=== PATIENT | female | born 1950 | race Caucasian/White ===

== ENCOUNTER 2020-10-15 10:43 | Observation (INO) ==
--- NOTE | 2020-10-15 11:23 | Emergency Department Note ---
Impression & Plan Chest pain ED Provider Note NAME: MYAH ERIC AGE: 70 SEX: F : 1950 ARRIVES VIA: Walk-In INFORMANT: Patient, ED PROVIDER(S): Kaden Alexis DO CHIEF COMPLAINT: Chest pain HPI: The patient is a 70-year-old female who presented to the emergency department for an evaluation of chest pain. The patient describes chest pain which began yesterday while she was exerting herself. She states she was walking from the parking lot to a store when she got to the store she realized that she was very flushed and diaphoretic. She also states that she was dizzy and felt a pressure over her anterior chest. She states that the symptoms improved with rest. She denies having any shortness of breath or leg swelling. The patient has had some nausea but no vomiting. The patient states her symptoms are mild to moderate at this time but they are ongoing. She continues to notice dizziness but denies having any vertigo symptoms or unilateral weakness. The patient denies having any headache. The patient has never had a cardiac history in the past. ROS: See above HPI for pertinent positives & negatives. A total of 10 systems reviewed and were otherwise negative. PAST MEDICAL HISTORY: See Below PAST SURGICAL HISTORY: See Below FAMILY HISTORY: See Below SOCIAL HISTORY: See Below HOME MEDICATIONS: See Below ALLERGIES: See Below VITALS: See Below PHYSICAL EXAMINATION: GENERAL: Patient is awake alert in no acute distress patient is resting comfortably and showing no signs of anxiety EYES: The conjunctivae are clear. The pupils are round and reactive. EARS, NOSE, MOUTH AND THROAT: The nose is without any evidence of any deformity. NECK: The neck is nontender and supple. RESPIRATORY: Normal respiratory effort is noted there is no evidence of wheezing rhonchi or rales CARDIOVASCULAR: Regular rate and rhythm noted there no murmurs rubs or gallops normal S1 normal S2. GASTROINTESTINAL: The abdomen is soft. Abdomen is nontender. MUSCULOSKELETAL/EXTREMITIES: There is no evidence of gross deformity full range of motion is noted in the hips and shoulders. SKIN: There is no obvious evidence of any rash. There are no petechiae, pallor or cyanosis noted. NEUROLOGIC: Patient is awake alert and oriented x3. MEDICAL DECISION MAKING: The patient is a 70-year-old female who presented to the emergency department for an evaluation of chest pain. The patient was experiencing chest pain after walking through a parking lot. She did not describe it as specific pain but more of a pressure. She also had a flushed feeling and may have been diap horetic at the time. This episode occurred yesterday. She was very concerned about a cardiac cause for her chest pain. The patient had EKG and troponin measurements in the emergency department. She had serial troponin measurements as well. I discussed the patient's laboratory and radiographic studies with her. I also discussed the limitations of the emergency department work-up for chest pain with her. Ultimately she was found to have a heart score of 4-5. I do feel this places her at high risk. For this reason I discussed her case with the on-call [facility] hospitalist group. They have agreed to evaluate the patient in the emergency department for further management and disposition. Triage Nursing notes reviewed. Prior medical records reviewed Vital Signs: reviewed and remarkable for no significant abnormalities Differential diagnosis: Cardiac ischemia, aortic dissection, pulmonary embolism, pneumothorax, pneumonia, pericarditis, myocarditis, esophageal rupture, GERD, cholecystitis, pancreatitis, musculoskeletal, as well as other pathologies. ER treatment provided: See below Diagnostics interpreted by me: ECG: EKG was obtained in the emergency department. My interpretation is normal sinus rhythm at 83 bpm. There was no ectopy. There is no acute ST segment abnormalities noted. No previous tracing was available. A second EKG was obtained in the emergency department. My interpretation is normal sinus rhythm at 73 bpm. There is no ectopy. There is no acute ST segment abnormalities noted. This was compared to the earlier tracing and no significant changes were noted. Cardiac Monitoring: An order was placed for continuous cardiac monitoring. The monitor shows a rate of 88 bpm with sinus rhythm. Laboratory studies: As stated above and show below. Imaging studies: See below Consultation(s): I discussed this case with Eh Ibrahim who is on-call for the [facility] list group. Past Med/Surg History Medical History (Updated 10/15/20 @ 17:10 by Kaden Alexis DO) Diabetes mellitus type 2, controlled Dyslipidemia Hypertension Obesity (BMI 30.0-34.9) Surgical History (Updated 10/15/20 @ 16:29 by Eh Ibrahim PA-C) No history of previous surgery Family History (Updated 10/15/20 @ 16:31 by Eh Ibrahim PA-C) Father Heart disease Sudden at age 76 Mother Heart disease Fatal SD in her 60s Daughter Heart disease PCI with stenting Brother Heart disease of an acute SD Sister Colorectal cancer Diagnosed at age 60 Stroke Social History (Updated 10/15/20 @ 16:32 by Eh Ibrahim PA-C) Smoking Status: Never smoker Hx Alcohol Use: Yes (1 drink nightly with [employer] and diet 7-Up) marital status: Current Living Situation: Spouse current occupational status: retired How many Children do You have: 2 Feels Safe at Home: Yes Allergies Allergies Allergy/AdvReac Type Severity Reaction Status Date / Time No Known Allergies Allergy Unverified 10/15/20 12:34 Home Meds Home Medications Medication Instructions Recorded Confirmed amlodipine-benazepril 1 cap PO QAM 10/15/20 10/15/20 aspirin [Aspir-81] 81 mg PO QAM 10/15/20 10/15/20 atorvastatin 20 mg PO QAM 10/15/20 10/15/20 metformin 500 mg PO BID 10/15/20 10/15/20 Results & Data (ED) Vital Signs Vital Signs - 24 hr 10/15/20 10:47 10/15/20 11:08 10/15/20 11:10 Temperature 36.8 C Temperature Source Oral Pulse Rate 126 H Pulse Rate [Apical] 84 Pulse Rate from SpO2 Sensor Pulse Rhythm Regular Pulse Strength Normal Respiratory Rate 18 14 Respiratory Effort / Characteristics Non-Labored Spontaneous Non-Labored Spontaneous Respiratory Depth Normal Normal Respiratory Pattern Regular Regular Blood Pressure 160/111 H Blood Pressure [Left Arm] 145/85 H Blood Pressure Mean 127 Blood Pressure Mean [Left Arm] 105 Blood Pressure Position Sitting Pulse Oximetry 97 95 Oxygen Delivery Method Room Air Room Air Room Air Sepsis Recent Fever Within 48 Hours No Sepsis New/Unexplained Change in Mental Status N/A Sepsis Action Taken by Nursing No Action Required 10/15/20 11:30 10/15/20 12:00 10/15/20 12:30 Temperature Temperature Source Pulse Rate 91 H 93 H 94 H Pulse Rate [Apical] Pulse Rate from SpO2 Sensor 91 H 88 92 H Pulse Rhythm Pulse Strength Respiratory Rate 13 18 16 Respiratory Effort / Characteristics Respiratory Depth Respiratory Pattern Blood Pressure 129/83 130/91 138/83 Blood Pressure [Left Arm] Blood Pressure Mean 98 104 101 Blood Pressure Mean [Left Arm] Blood Pressure Position Pulse Oximetry 96 98 97 Oxygen Delivery Method Room Air Room Air Room Air Sepsis Recent Fever Within 48 Hours Sepsis New/Unexplained Change in Mental Status Sepsis Action Taken by Nursing 10/15/20 13:00 10/15/20 13:32 10/15/20 14:00 Temperature Temperature Source Pulse Rate 92 H 79 90 Pulse Rate [Apical] Pulse Rate from SpO2 Sensor 92 H 79 88 Pulse Rhythm Pulse Strength Respiratory Rate 15 16 24 Respiratory Effort / Characteristics Respiratory Depth Respiratory Pattern Blood Pressure 128/86 121/86 133/87 Blood Pressure [Left Arm] Blood Pressure Mean 100 97 102 Blood Pressure Mean [Left Arm] Blood Pressure Position Pulse Oximetry 96 99 97 Oxygen Delivery Method Room Air Room Air Room Air Sepsis Recent Fever Within 48 Hours Sepsis New/Unexplained Change in Mental Status Sepsis Action Taken by Nursing 10/15/20 14:30 10/15/20 15:00 10/15/20 15:30 Temperature Temperature Source Pulse Rate 87 89 103 H Pulse Rate [Apical] Pulse Rate from SpO2 Sensor 84 86 Pulse Rhythm Pulse Strength Respiratory Rate 19 18 20 Respiratory Effort / Characteristics Respiratory Depth Respiratory Pattern Blood Pressure 128/82 152/95 H 129/86 Blood Pressure [Left Arm] Blood Pressure Mean 97 114 100 Blood Pressure Mean [Left Arm] Blood Pressure Position Pulse Oximetry 97 96 Oxygen Delivery Method Room Air Room Air Room Air Sepsis Recent Fever Within 48 Hours Sepsis New/Unexplained Change in Mental Status Sepsis Action Taken by Nursing 10/15/20 16:00 10/15/20 16:30 10/15/20 17:00 Temperature Temperature Source Pulse Rate 86 92 H 88 Pulse Rate [Apical] Pulse Rate from SpO2 Sensor 86 89 87 Pulse Rhythm Pulse Strength Respiratory Rate 14 17 19 Respiratory Effort / Characteristics Respiratory Depth Respiratory Pattern Blood Pressure 149/78 H 158/87 H 129/87 Blood Pressure [Left Arm] Blood Pressure Mean 101 110 101 Blood Pressure Mean [Left Arm] Blood Pressure Position Pulse Oximetry 95 96 97 Oxygen Delivery Method Room Air Room Air Room Air Sepsis Recent Fever Within 48 Hours Sepsis New/Unexplained Change in Mental Status Sepsis Action Taken by Care Home Medications Current Medication List: was personally reviewed by me Laboratory Data Attestation: I reviewed the patient's lab results. Result diagrams: 10/15/20 11:08 10/15/20 11:08 Lab Results 02/21/21 02/21/21 02/21/21 Range/Units 11:08 11:08 11:08 WBC 5.85 (4.8-10.8) K/uL RBC 4.53 (4.2-5.4) M/uL Hgb 14.8 (12.0-16.0) g/dL Hct 43.6 (37-47) % MCV 96.2 (80-100) fL MCH 32.7 (25-34) pg MCHC 33.9 (32-36) g/dL RDW Std Deviation 43.3 (36.4-46.3) fL RDW Coeff of Ratna 12.4 (11.5-14.5) % Plt Count 212 (130-400) K/uL MPV 12.0 H (7.4-10.4) fL Immature Gran % (Auto) 0.2 % Neut % (Auto) 51.4 % Lymph % (Auto) 29.9 % [place] % (Auto) 10.6 % Eos % (Auto) 7.4 % Baso % (Auto) 0.5 % Neut # (Auto) 3.01 (1.4-6.5) K/uL Lymph # (Auto) 1.75 (1.2-3.4) K/uL [place] # (Auto) 0.62 H (0.11-0.59) K/uL Eos # (Auto) 0.43 (0-0.5) K/uL Baso # (Auto) 0.03 (0-0.2) K/uL Immature Gran # (Auto) 0.01 (0.00-0.02) K/uL PT 9.9 (9.0-12.0) Seconds INR 1.0 (0.9-1.1) APTT 24.2 (21.0-31.0) Seconds PTT Ratio 0.9 Sodium 141 (136-145) mmol/L Potassium 4.2 (3.5-5.1) mmol/L Chloride 107 (98-107) mmol/L Carbon Dioxide 25 (21-32) mmol/L Anion Gap 9.0 (3-11) BUN 11 (7-18) mg/dl Creatinine 0.87 (0.6-1.2) mg/dl Est Cr Clr Drug Dosing 57.3 ml/min Est GFR ( Amer) 77.1 Est GFR (Non-Af Amer) 66.6 BUN/Creatinine Ratio 13.1 (10-20) Glucose 92 (70-99) mg/dl Calcium 9.1 (8.5-10.1) mg/dl Total Bilirubin 0.5 (0.2-1) mg/dl AST 17 (15-37) U/L ALT 32 (12-78) U/L Alkaline Phosphatase 72 (45-117) U/L Troponin I < 0.015 (0-0.045) ng/ml Total Protein 7.8 (6.4-8.2) gm/dl Albumin 4.2 (3.4-5.0) gm/dl Globulin 3.6 (2.5-4.0) gm/dl Albumin/Globulin Ratio 1.2 (0.9-2) Lipase 206 (73-393) U/L Specimen Hemolysis COVID-19 Eval Order SARS-CoV-2 (PCR) Influenza Type A (PCR) Influenza Type B (PCR) RSV (RT-PCR) SARS-CoV-2, RNA, NAAT (NEGATIVE) 10/15/20 10/15/20 10/15/20 Range/Units 14:19 16:02 16:02 WBC (4.8-10.8) K/uL RBC (4.2-5.4) M/uL Hgb (12.0-16.0) g/dL Hct (37-47) % MCV (80-100) fL MCH (25-34) pg MCHC (32-36) g/dL RDW Std Deviation (36.4-46.3) fL RDW Coeff of Ratna (11.5-14.5) % Plt Count (130-400) K/uL MPV (7.4-10.4) fL Immature Gran % (Auto) % Neut % (Auto) % Lymph % (Auto) % [place] % (Auto) % Eos % (Auto) % Baso % (Auto) % Neut # (Auto) (1.4-6.5) K/uL Lymph # (Auto) (1.2-3.4) K/uL [place] # (Auto) (0.11-0.59) K/uL Eos # (Auto) (0-0.5) K/uL Baso # (Auto) (0-0.2) K/uL Immature Gran # (Auto) (0.00-0.02) K/uL PT (9.0-12.0) Seconds INR (0.9-1.1) APTT (21.0-31.0) Seconds PTT Ratio Sodium (136-145) mmol/L Potassium (3.5-5.1) mmol/L Chloride (98-107) mmol/L Carbon Dioxide (21-32) mmol/L Anion Gap (3-11) BUN (7-18) mg/dl Creatinine (0.6-1.2) mg/dl Est Cr Clr Drug Dosing ml/min Est GFR ( Amer) Est GFR (Non-Af Amer) BUN/Creatinine Ratio (10-20) Glucose (70-99) mg/dl Calcium (8.5-10.1) mg/dl Total Bilirubin (0.2-1) mg/dl AST (15-37) U/L ALT (12-78) U/L Alkaline Phosphatase (45-117) U/L Troponin I < 0.015 (0-0.045) ng/ml Total Protein (6.4-8.2) gm/dl Albumin (3.4-5.0) gm/dl Globulin (2.5-4.0) gm/dl Albumin/Globulin Ratio (0.9-2) Lipase (73-393) U/L Specimen Hemolysis COVID-19 Eval Order Covid19 [facility] SARS-CoV-2 (PCR) Cancelled Influenza Type A (PCR) Cancelled Influenza Type B (PCR) Cancelled RSV (RT-PCR) Cancelled SARS-CoV-2, RNA, NAAT (NEGATIVE) 10/15/20 Range/Units 16:02 WBC (4.8-10.8) K/uL RBC (4.2-5.4) M/uL Hgb (12.0-16.0) g/dL Hct (37-47) % MCV (80-100) fL MCH (25-34) pg MCHC (32-36) g/dL RDW Std Deviation (36.4-46.3) fL RDW Coeff of Ratna (11.5-14.5) % Plt Count (130-400) K/uL MPV (7.4-10.4) fL Immature Gran % (Auto) % Neut % (Auto) % Lymph % (Auto) % [place] % (Auto) % Eos % (Auto) % Baso % (Auto) % Neut # (Auto) (1.4-6.5) K/uL Lymph # (Auto) (1.2-3.4) K/uL [place] # (Auto) (0.11-0.59) K/uL Eos # (Auto) (0-0.5) K/uL Baso # (Auto) (0-0.2) K/uL Immature Gran # (Auto) (0.00-0.02) K/uL PT (9.0-12.0) Seconds INR (0.9-1.1) APTT (21.0-31.0) Seconds PTT Ratio Sodium (136-145) mmol/L Potassium (3.5-5.1) mmol/L Chloride (98-107) mmol/L Carbon Dioxide (21-32) mmol/L Anion Gap (3-11) BUN (7-18) mg/dl Creatinine (0.6-1.2) mg/dl Est Cr Clr Drug Dosing ml/min Est GFR ( Amer) Est GFR (Non-Af Amer) BUN/Creatinine Ratio (10-20) Glucose (70-99) mg/dl Calcium (8.5-10.1) mg/dl Total Bilirubin (0.2-1) mg/dl AST (15-37) U/L ALT (12-78) U/L Alkaline Phosphatase (45-117) U/L Troponin I (0-0.045) ng/ml Total Protein (6.4-8.2) gm/dl Albumin (3.4-5.0) gm/dl Globulin (2.5-4.0) gm/dl Albumin/Globulin Ratio (0.9-2) Lipase (73-393) U/L Specimen Hemolysis COVID-19 Eval Order SARS-CoV-2 (PCR) Influenza Type A (PCR) Influenza Type B (PCR) RSV (RT-PCR) SARS-CoV-2, RNA, NAAT NEGATIVE (NEGATIVE) Administered Medications Discontinued Medications Aspirin (Aspirin Chew 324 Mg) 324 mg PO NOW STA Stop: 10/15/20 11:29 Last Admin: 10/15/20 11:40 Dose: 324 mg Documented by: [id number] Imaging Data Radiologist's Impression: Patient: MYAH ERIC Admit Date: 10/15/20 MR#: [id number] Address[address]: [address] Acct ID:[id number] Address2: Date: 1950 [facility] Zip: [id number] Age: 70 Location: ED Sex: F Room/Bed: Att Phy: Diagnosis: CHEST PAIN,NECK PAIN,LEFT ARM PAIN Maida Phy: Apurva Holt DO Service Date: 10/15/20 Fam Phy: Interpreting Phy: Jhonatan Garcia Admit Phy: Ordering Phy: Kaden Alexis DO cc: ~ XR chest 1V portable HISTORY: 70 years-old Female Chest Pain acute atypical chest pain COMPARISON: None TECHNIQUE: Portable AP view of the chest FINDINGS: Cardiomediastinal and hilar silhouettes are within normal limits. No pneumothorax, pleural effusion, airspace consolidation or overt pulmonary edema. Subcentimeter nodular opacity projects over the left lung base, possibly reflective of a nipple shadow. Bones of the chest appear grossly intact. IMPRESSION: No acute process. ACT 112: Negative or not required by law. The above report was generated using voice recognition software. It may contain grammatical, syntax or spelling errors. Electronically signed by: Casey Garcia M.D. 10/15/2020 12:21 PM Dictated: 10/15/20 1220 Transcribed: 10/15/20 1220 Discharge Plan Visit Data Chief Complaint: Chest Pain Stated Complaint: CHEST PAIN,NECK PAIN,LEFT ARM PAIN ED Provider: Kaden Alexis Discharge Problem: Chest pain Patient Disposition: Being Evaluated by Hospitalist Condition: Good Forms Stand Alone Forms: [facility] Prescriptions Prescriptions: No Action metformin 500 mg tablet 500 mg PO BID RF: 0 atorvastatin 20 mg tablet 20 mg PO QAM RF: 0 aspirin [Aspir-81] 81 mg Tablet,Delayed Release (Dr/Ec) 81 mg PO QAM RF: 0 amlodipine-benazepril 5-10 mg capsule 1 cap PO QAM RF: 0 Referrals Referrals: Apurva Holt DO [Primary Care Provider] - Discharge Problem: Chest pain Qualifiers: Chest pain type: unspecified Qualified Code(s): R07.9 - Chest pain, unspecified
[2020-10-15] MEDS ORDERED: ASPIRIN CHEW 324 MG PO STA (11:28)
[2020-10-15 11:46] LABS: Basophils # (auto) 0.03 K/uL (0-0.2); Basophils % (auto) 0.5 %; Eosinophils # (auto) 0.43 K/uL (0-0.5); Eosinophils % (auto) 7.4 %; Hematocrit (blood only) 43.6 % (37-47); Hemoglobin 14.8 g/dL (12.0-16.0); Immature Granulocytes # (auto) 0.01 K/uL (0.00-0.02); Immature Granulocytes % (auto) 0.2 %; Lymphocytes # (auto) 1.75 K/uL (1.2-3.4); Lymphocytes % (auto) 29.9 %; Mean Corpuscular Hemoglobin 32.7 pg (25-34); Mean Corpuscular Hgb Conc 33.9 g/dL (32-36); Mean Corpuscular Volume 96.2 fL (80-100); Monocytes # (auto) 0.62 K/uL (0.11-0.59); Monocytes % (auto) 10.6 %; Neutrophils # (auto) 3.01 K/uL (1.4-6.5); Neutrophils % (auto) 51.4 %; Platelet Count 212 K/uL (130-400); RDW Coefficient of Variation 12.4 % (11.5-14.5); RDW Standard Deviation 43.3 fL (36.4-46.3); Red Blood Count 4.53 M/uL (4.2-5.4); White Blood Count 5.85 K/uL (4.8-10.8)
[2020-10-15 12:02] LABS: Partial Thromboplastin Ratio 0.9; Partial Thromboplastin Time 24.2 Seconds (21.0-31.0); Prothrombin Time 9.9 Seconds (9.0-12.0)
[2020-10-15 12:17] LABS: Alanine Aminotransferase 32 U/L (12-78); Albumin Level 4.2 gm/dl (3.4-5.0); Aspartate Aminotransferase 17 U/L (15-37); BUN Creatinine Ratio 13.1 (10-20); Blood Urea Nitrogen 11 mg/dl (7-18); Calcium 9.1 mg/dl (8.5-10.1); Carbon Dioxide 25 mmol/L (21-32); Chloride 107 mmol/L (98-107); Creatinine Clr Calc Pharmacy 57.3 ml/min; Est GFR (African American) 77.1; Est GFR (Non-African American) 66.6; Glucose 92 mg/dl (70-99); Lipase 206 U/L (73-393); Potassium 4.2 mmol/L (3.5-5.1); Sodium 141 mmol/L (136-145)
[2020-10-15 12:21] LABS: Albumin Globulin Ratio 1.2 (0.9-2); Alkaline Phosphatase 72 U/L (45-117); Bilirubin,Total 0.5 mg/dl (0.2-1); Globulin 3.6 gm/dl (2.5-4.0); Total Protein 7.8 gm/dl (6.4-8.2); Troponin I < 0.015 ng/ml (0-0.045)
--- NOTE | 2020-10-15 12:23 | XRay Report ---
XR chest 1V portable HISTORY: 70 years-old Female Chest Pain acute atypical chest pain COMPARISON: None TECHNIQUE: Portable AP view of the chest FINDINGS: Cardiomediastinal and hilar silhouettes are within normal limits. No pneumothorax, pleural effusion, airspace consolidation or overt pulmonary edema. Subcentimeter nodular opacity projects over the left lung base, possibly reflective of a nipple shadow. Bones of the chest appear grossly intact. IMPRESSION: No acute process. ACT 112: Negative or not required by law. The above report was generated using voice recognition software. It may contain grammatical, syntax o r spelling errors. Electronically signed by: Casey Garcia M.D. 10/15/2020 12:21 PM
--- NOTE | 2020-10-15 13:34 | Electrocardiogram Report ---
Test Reason : Blood Pressure : / mmHG Vent. Rate : 083 BPM Atrial Rate : 083 BPM P-R Int : 146 ms QRS Dur : 080 ms QT Int : 368 ms P-R-T Axes : 057 002 024 degrees QTc Int : 432 ms Normal sinus rhythm Normal ECG No previous ECGs available Confirmed by Noel Powell ([id number]) on 10/15/2020 1:33:52 PM Referred By: REFERRED SELF Confirmed By:Bg Powell
--- NOTE | 2020-10-15 16:27 | History & Physical Report ---
Date of Service October 15, 2020 Assessment & Plan (1) Chest pain: Patient presents with chest pain rated 1-2 out of 10 with slight exacerbation with exercise Heart score of 5 Significant family history of secondary to myocardial infarction Patient received aspirin in the emergency department At the time of examination the patient's pain was resolved Will request echocardiogram as well as repeat EKG in the morning Consult cardiology for consideration of stress test Admit to telemetry unit (2) Hypertension: Continue with amlodipine/benazepril Cardiology consulted for chest pain evaluation Admit to telemetry unit (3) Diabetes mellitus type 2, controlled: Most recent hemoglobin A1c was 6.4% in March 2020 Patient currently requires Metformin 500 mg p.o. twice daily She has never been on insulin Will establish NovoLog sliding scale while inpatient and plan to discharge on Metformin Further management as an outpatient (4) Dyslipidemia: Continue with atorvastatin 20 mg p.o. daily Diabetic, heart healthy diet while inpatient Outpatient management (5) Obesity (BMI 30.0-34.9): BMI of 32.3 kg/m Encourage exercise and generalized weight loss (6) DVT prophylaxis: Heparin 5000 units SQ every 8 hours Ambulate as tolerated on monitor Please refer to Dr. Farley's addendum for further recommendations and corrections Admission and Anticipated Discharge Date Admission Date: 10/15/2019 History of Present Illness Primary Care Provider: Apurva Holt DO Attending: Dr. Farley This is a 70-year-old female with a past medical history of diabetes mellitus type 2 on Metformin, hyperlipidemia, hypertension, BMI of 32.3 kg/m. Mrs. Apple reports that she was in her usual state of health until this morning when she began having bandlike chest pain radiating into both sides of her neck and jaw and achiness down her left arm. On a scale of 0-10, she rates the pain a 1-2. She has an extensive history of heart disease in her family including a brother who of acute NC at an early age, mother who of NC in her early 60s, father who of probable NC at age 76 and a daughter who had NC with stent placement. The patient has never had any chest pain or tightness before. She states that this has occurred over the last several days with and without exercise. Is not necessarily worse with exercise but it is noticeable. Vernon features included nausea and profuse sweating last night. The patient states that she went through menopause in the mid 90s. She is not on any hormone replacement. She typically has not had any night sweats. At the time of my examination, her pain is completely resolved. Blood pressure has been fluctuating from a systolic blood pressure of 121 to a systolic pressure of 160. The patient is on amlodipine/benazepril and took her medication this morning. EKG was normal sinus rhythm with a QTC of 440 and no evidence of ST change. Troponin has been negative x2. A repeat troponin is now ordered for a.m. labs. Patient has no hypoxia. She denies any history of pulmonary disease. She has no tobacco abuse history. Patient drinks 1 drink per night comprising of [place] [employer] and diet 7-Up. Allergies Allergy/AdvReac Type Severity Reaction Status Date / Time No Known Allergies Allergy Unverified 10/15/20 12:34 Home Medications Medication Instructions Recorded Confirmed Type amlodipine-benazepril 1 cap PO QAM 10/15/20 10/15/20 History aspirin [Aspir-81] 81 mg PO QAM 10/15/20 10/15/20 History atorvastatin 20 mg PO QAM 10/15/20 10/15/20 History metformin 500 mg PO BID 10/15/20 10/15/20 History Past Med/Surg History Medical History (Updated 10/15/20 @ 16:35 by Eh Ibrahim PA-C) Diabetes mellitus type 2, controlled Dyslipidemia Hypertension Obesity (BMI 30.0-34.9) Surgical History (Updated 10/15/20 @ 16:29 by Eh Ibrahim PA-C) No history of previous surgery Family History (Updated 10/15/20 @ 16:31 by Eh Ibrahim PA-C) Father Heart disease Sudden at age 76 Mother Heart disease Fatal NC in her 60s Daughter Heart disease PCI with stenting Brother Heart disease of an acute NC Sister Colorectal cancer Diagnosed at age 60 Stroke Social History (Updated 10/15/20 @ 16:32 by Eh Ibrahim PA-C) Smoking Status: Never smoker Hx Alcohol Use: Yes (1 drink nightly with [place] whiskey and diet 7-Up) marital status: Current Living Situation: Spouse current occupational status: retired How many Children do You have: 2 Feels Safe at Home: Yes Review of Systems Review of Systems: All systems reviewed & are unremarkable except as noted in HPI & below Physical Exam Physical Exam: GENERAL : No acute distress EYES: No icterus, gaze conjugate NOSE: No evidence of epistaxis MOUTH: No lesions or candidiasis NECK: Supple LUNGS: CTA B/L, no wheezes, rales or rhonchi HEART: Regular, rate controlled ABDOMEN: Soft, NT, ND, BS Present EXTREMITIES: No LE edema, pedal pulses intact NEURO: A&OX3 Results & Data Results & Data ([facility]) Vital Signs (Past 12 Hours) Vital Signs Temp Pulse Pulse Resp BP BP Pulse Ox 10/15/20 15:30 103 H 20 129/86 10/15/20 15:00 89 18 152/95 H 96 10/15/20 14:30 87 19 128/82 97 10/15/20 14:00 90 24 133/87 97 10/15/20 13:32 79 16 121/86 99 10/15/20 13:00 92 H 15 128/86 96 10/15/20 12:30 94 H 16 138/83 97 10/15/20 12:00 93 H 18 130/91 98 10/15/20 11:30 91 H 13 129/83 96 10/15/20 11:10 84 14 145/85 H 95 10/15/20 10:47 36.8 C 126 H 18 160/111 H 97 Laboratory Results 10/15/20 11:08 10/15/20 11:08 INR 1.0 (0.9-1.1) 10/15/20 11:08 10/15/20 10/15/20 11:08 14:19 Troponin I < 0.015 < 0.015 Diagnostic Findings Chest x-ray with no acute cardiopulmonary findings ECG Indication: chest pain Rhythm: normal sinus Findings: no Q waves, no ST depression, no T-wave inversion, no ST elevation, no prolonged QT and no ectopy Code Status & VTE Plan Code Status Level I full resuscitation VTE Prophylaxis Plan VTE Prophylaxis will be ordered: Yes Supervising Physician Co-Signing Physician Notes 71-year-old woman with history of DM type II, hyperlipidemia, hypertension, obesity who presents complaining of chest pain yesterday while walking to the store that was associated with diaphoresis, shortness of breath. She stated that she had used the treadmill few minutes before that. Reports that the pain radiates to the neck and the arm. Has been on of since yesterday. Significant family history of heart disease. Unremarkable physical exam. Lab work showed negative troponins. EKG showed normal sinus without ST-T changes. 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
--- NOTE | 2020-10-15 16:34 | Electrocardiogram Report ---
Test Reason : Blood Pressure : / mmHG Vent. Rate : 073 BPM Atrial Rate : 073 BPM P-R Int : 154 ms QRS Dur : 080 ms QT Int : 400 ms P-R-T Axes : 044 004 013 degrees QTc Int : 440 ms Normal sinus rhythm Normal ECG When compared with ECG of 15-OCT-2020 10:57, No significant change was found Confirmed by Noel Powell ([id number]) on 10/15/2020 4:34:19 PM Referred By: REFERRED SELF Confirmed By:Bg Powell
[2020-10-15] MEDS ORDERED: NITROGLYCERIN SL 0.4 MG/TAB TAB SL PRN (17:57)
[2020-10-15] MEDS ORDERED: GLUCOSE 10 TABS/TUBE PO PRN (17:57)
[2020-10-15] MEDS ORDERED: GLUCOSE 40% GEL 15 GM TUBE PO PRN (17:57)
[2020-10-15] MEDS ORDERED: CARBOHYDRATES FOR HYPOGLYCEMIA PO PRN (17:57)
[2020-10-15] MEDS ORDERED: ONDANSETRON INJ 2 MG/ML 2 ML VIAL IV PRN (17:57)
[2020-10-15] MEDS ORDERED: GLUCAGON FOR INJ 1 MG VIAL SQ PRN (17:57)
[2020-10-15] MEDS ORDERED: DEXTROSE 50% 50 ML SYRINGE IV PRN (17:57)
[2020-10-15] MEDS ORDERED: ACETAMINOPHEN 325 MG TAB PO PRN (17:57)
[2020-10-15] MEDS: INSULIN ASPART 100 UNITS/ML 3 ML PEN SC SCH ×2 (19:41→22:36)
[2020-10-15] MEDS: HEPARIN SOD 5,000 UNIT/0.5 ML VIAL SQ SCH (22:36)
[2020-10-16] MEDS: HEPARIN SOD 5,000 UNIT/0.5 ML VIAL SQ SCH ×2 (05:06→13:37)
[2020-10-16 06:27] LABS: BUN Creatinine Ratio 12.8 (10-20); Blood Urea Nitrogen 11 mg/dl (7-18); Calcium 8.9 mg/dl (8.5-10.1); Carbon Dioxide 27 mmol/L (21-32); Chloride 109 mmol/L (98-107); Creatinine Clr Calc Pharmacy 58.7 ml/min; Est GFR (African American) 79.3; Est GFR (Non-African American) 68.5; Glucose 110 mg/dl (70-99); Potassium 4.4 mmol/L (3.5-5.1); Sodium 142 mmol/L (136-145)
[2020-10-16 06:31] LABS: Troponin I < 0.015 ng/ml (0-0.045)
[2020-10-16] MEDS: INSULIN ASPART 100 UNITS/ML 3 ML PEN SC SCH ×2 (07:45→12:02)
[2020-10-16] MEDS ORDERED: metFORMIN HCL 500 MG TAB PO SCH (08:00)
--- NOTE | 2020-10-16 08:25 | Electrocardiogram Report ---
Test Reason : Blood Pressure : / mmHG Vent. Rate : 074 BPM Atrial Rate : 074 BPM P-R Int : 166 ms QRS Dur : 084 ms QT Int : 402 ms P-R-T Axes : 061 013 039 degrees QTc Int : 446 ms Normal sinus rhythm Normal ECG When compared with ECG of 15-OCT-2020 14:16, No significant change was found Confirmed by Noel Powell ([id number]) on 10/16/2020 8:25:18 AM Referred By: REFERRED SELF Confirmed By:Bg Powell
[2020-10-16] MEDS ORDERED: amLODIPine BESYLATE 5 MG TAB PO SCH (09:00)
[2020-10-16] MEDS ORDERED: ASPIRIN 81 MG ECTAB PO SCH (09:00)
[2020-10-16] MEDS ORDERED: ENALAPRIL MALEATE 10 MG TAB PO SCH (09:00)
[2020-10-16] MEDS ORDERED: ATORVASTATIN 20 MG TAB PO SCH (09:00)
[2020-10-16] MEDS ORDERED: lisinopril 10 MG TAB PO SCH (09:00)
--- NOTE | 2020-10-16 09:35 | Cardiology Consultation ---
Date of Consultation October 16, 2020 Assessment & Plan (1) Chest pain: Patient describes no cash chest tightness, but heavy perspiration and generalized illness, and her symptoms are certainly concerning for an atypical presentation of angina. Serial EKG tracings and troponin measurements have been within normal limits. Strong family history of atherosclerotic vascular disease and cardiac noted as above. Continue aspirin 81 mg daily, plan for exercise stress echocardiogram this morning. Further recommendations to be forthcoming after the test. (2) Hypertension: The patient's blood pressures have been slowly above goal while hospitalized, most recent measurement 158/79. As an outpatient, she is typically treated with a combination tablet of amlodipine and benazepril. Per formulary, she is on amlodipine 5 mg daily, and Vasotec 10 mg daily in the morning while hospitalized. We will reassess her blood pressure response during stress testing. (3) Dyslipidemia: Irregardless of stress test results, based on recent LDL cholesterol in the 80s, I recommend that we increase her atorvastatin to 40 mg daily for goal LDL of less than 70. History of Present Illness Attending Physician: Emily Galvez MD History of Present Illness Liz Apple is a 70 year old female seen in cardiology consultation per the request of Eh Ibrahim PA-c and Dr Nava for the evaluation of chest discomfort. The patient's PCP is Dr Apurva Holt. This is the patient's first cardiology assessment. She describes that she did start a new exercise program, and on her second day of exercising, 2 days ago on Friday, she walked for 15 minutes on the treadmill. Before starting her exercise she had a very light breakfast of 2 sweet rolls and coffee. She felt like she perspired significantly while exercising, but noted no cash chest discomfort or shortness of breath. She then went shopping with her , and while in the local [employer] store she noted severe perspiration. She took off her winter coat, and she noted the back of her teacher was saturated with perspiration. She went home, and did not feel well for the rest of the day, but noted no cash chest discomfort. Yesterday, Friday, she felt ongoing generalized illness feelings like she is not quite herself, but no cash chest tightness, nauseousness, or shortness of breath. The patient discussed her symptoms with her daughter, and due to concern she presented to the emergency department. Thus far, EKG x3 tracings has revealed no significant repolarization changes, and troponin I has been undetectable x3 measurements. The patient's past history is notable for hypertension, dyslipidemia, and type 2 diabetes mellitus. Her most recent LDL cholesterol performed earlier this month with her primary care provider have been 88 mg/dL, and she has been treated with atorvastatin 20 mg on a chronic basis. Family History: The patient's maternal grandfather of a presumed myocardial infarction suddenly in his 50s. The patient's mother had a history of femoral arterial bypass. The patient's brother had a history of coronary heart disease, CABG x4 in his 40s, and suddenly of a presumed cardiac event in his 50s. Daughter, history of coronary heart disease, 2 coronary stents. Allergies Allergy/AdvReac Type Severity Reaction Status Date / Time No Known Allergies Allergy Unverified 10/15/20 12:34 Home Medications Medication Instructions Recorded Confirmed Type amlodipine-benazepril 1 cap PO QAM 10/15/20 10/15/20 History aspirin [Aspir-81] 81 mg PO QAM 10/15/20 10/15/20 History atorvastatin 20 mg PO QAM 10/15/20 10/15/20 History metformin 500 mg PO BID 10/15/20 10/15/20 History Patient History Medical History Diabetes mellitus type 2, controlled Dyslipidemia Hypertension Obesity (BMI 30.0-34.9) Surgical History (Updated 10/15/20 @ 16:29 by Eh Ibrahim PA-C) No history of previous surgery Family History Father Heart disease Sudden at age 76 Mother Heart disease Fatal MD in her 60s Daughter Heart disease PCI with stenting Brother Heart disease of an acute MD Sister Colorectal cancer Diagnosed at age 60 Stroke Social History Smoking Status: Never smoker Hx Alcohol Use: Yes Alcohol type: hard liquor Hx Substance Use: No Preferred Language: Swedish Communication Ability: Effective Beliefs That Will Affect Care: None marital status: Current Living Situation: Spouse current occupational status: retired How many Children do You have: 2 Other Information That Helps Us Care for You: No Feels Safe at Home: Yes Safety Concerns: Feels Safe At This Time Assistive Devices: None Review of Systems Review of Systems: All systems reviewed & are unremarkable except as noted in HPI & below Physical Exam Physical Exam: Temp Pulse Resp BP Pulse Ox 36.6 C 73 18 158/79 H 94 10/16/20 07:15 10/16/20 07:15 10/16/20 07:15 10/16/20 07:15 10/16/20 07:15 Constitutional: WD/WN, vitals as above Respiratory: normal respiratory effort, lungs clear to auscultation Cardiovascular: RRR, no murmur, no edema Gastrointestinal (Abdomen): normal bowel sounds, soft, nontender, no hepatosplenomegaly Neurologic: PERRL, EOMI, accommodation nl, no face palsy, no dysarthria Results & Data ([facility]) Vital Signs (Past 12 Hours) Vital Signs Temp Pulse Pulse Resp BP BP Pulse Ox 10/16/20 07:15 36.6 C 73 18 158/79 H 94 10/16/20 03:42 36.4 C L 70 16 145/80 H 96 10/15/20 22:58 36.6 C 80 14 159/90 H 96 10/15/20 22:20 71 Laboratory Results Cardiac Enzymes 10/15/20 10/15/20 10/16/20 Range/Units 11:08 14:19 05:42 AST 17 (15-37) U/L Troponin I < 0.015 < 0.015 < 0.015 (0-0.045) ng/ml Coagulation 10/15/20 Range/Units 11:08 PT 9.9 (9.0-12.0) Seconds APTT 24.2 (21.0-31.0) Seconds CBC 10/15/20 Range/Units 11:08 WBC 5.85 (4.8-10.8) K/uL RBC 4.53 (4.2-5.4) M/uL Hgb 14.8 (12.0-16.0) g/dL Hct 43.6 (37-47) % Plt Count 212 (130-400) K/uL Neut # (Auto) 3.01 (1.4-6.5) K/uL Lymph # (Auto) 1.75 (1.2-3.4) K/uL [place] # (Auto) 0.62 H (0.11-0.59) K/uL Eos # (Auto) 0.43 (0-0.5) K/uL Baso # (Auto) 0.03 (0-0.2) K/uL Comprehensive Metabolic Panel 10/15/20 10/16/20 Range/Units 11:08 05:42 Sodium 141 142 (136-145) mmol/L Potassium 4.2 4.4 (3.5-5.1) mmol/L Chloride 107 109 H (98-107) mmol/L Carbon Dioxide 25 27 (21-32) mmol/L BUN 11 11 (7-18) mg/dl Creatinine 0.87 0.85 (0.6-1.2) mg/dl Glucose 92 110 H (70-99) mg/dl Calcium 9.1 8.9 (8.5-10.1) mg/dl AST 17 (15-37) U/L ALT 32 (12-78) U/L Alkaline Phosphatase 72 (45-117) U/L Total Protein 7.8 (6.4-8.2) gm/dl Albumin 4.2 (3.4-5.0) gm/dl Intake and Output 10/15/20 10/16/20 10/16/20 22:59 06:59 14:59 Intake Total 750 / 750 Balance 750 / 750 Intake: Oral 750 / 750 Other: Other Intake Source NPO # Unmeasured Voids 3 1 Weight 80.1 kg Weight Measurement Method Last Office Visit Diagnostic Findings EKG performed 10/15/2020 at 10:57 AM and reviewed independently revealed normal sinus rhythm at 83 bpm, EKG tracing. Another tracing performed yesterday, and additional 1 this morning were also well without significant interval change. Resting echocardiogram revealed normal biventricular systolic function, normal resting left ventricular wall motion, trace mitral regurgitation, LVEF 60 to 65%. (1) Chest pain Chest pain type: unspecified Qualified Code(s): R07.9 - Chest pain, unspecified (2) Hypertension Hypertension type: unspecified Qualified Code(s): I10 - Essential (primary) hypertension
--- NOTE | 2020-10-16 10:13 | Communication Note ---
Date of Service: October 16, 2020 Nonischemic response to stress echocardiogram. Exercise capacity is somewhat below that which was anticipated, but the patient notes that she is working on resuming her exercise program at home, actually formed to exercise sessions in advance of today. Although she was only able to walk approximately 30 seconds into the second stage of the Jose protocol, she was wearing a mask per COVID-19 protocol, and so I think her time on the treadmill somewhat under assesses her actual exercise capacity. No symptoms suggestive angina were reproduced, EKG and echocardiographic responses to exercise were within normal limits. I think her presenting symptoms may been due to her diet and the rigors of getting back into her exercise program. Counseled her that she may resume treadmill exercising at home, perhaps at a lower pace, 2% incline, 1.5 mph, and with plans to increase as tolerated. Disposition: Stable for discharge to home. I would recommend increasing her atorvastatin from 20 mg to 40 mg. Given her underlying cardiac risk, I would recommend that she is a good candidate to remain on low-dose aspirin 81 mg daily. Continue her prior to hospital hypertensive regimen with benazepril/amlodipine. Recommend PCP follow-up within 1 to 2 weeks. Cardiology follow-up within 2 months for follow-up of risk factor counseling.
--- NOTE | 2020-10-16 12:41 | Discharge Summary ---
Date of Service October 16, 2020 Admission HPI Per Admitting Provider Attending: Dr. Farley This is a 70-year-old female with a past medical history of diabetes mellitus type 2 on Metformin, hyperlipidemia, hypertension, BMI of 32.3 kg/m. Mrs. Apple reports that she was in her usual state of health until this morning when she began having bandlike chest pain radiating into both sides of her neck and jaw and achiness down her left arm. On a scale of 0-10, she rates the pain a 1-2. She has an extensive history of heart disease in her family including a brother who of acute WA at an early age, mother who of WA in her early 60s, father who of probable WA at age 76 and a daughter who had WA with stent placement. The patient has never had any chest pain or tightness before. She states that this has occurred over the last several days with and without exercise. Is not necessarily worse with exercise but it is noticeable. Vernon features included nausea and profuse sweating last night. The patient states that she went through menopause in the mid 90s. She is not on any hormone replacement. She typically has not had any night sweats. At the time of my examination, her pain is completely resolved. Blood pressure has been fluctuating from a systolic blood pressure of 121 to a systolic pressure of 160. The patient is on amlodipine/benazepril and took her medication this morning. EKG was normal sinus rhythm with a QTC of 440 and no evidence of ST change. Troponin has been negative x2. A repeat troponin is now ordered for a.m. labs. Patient has no hypoxia. She denies any history of pulmonary disease. She has no tobacco abuse history. Patient drinks 1 drink per night comprising of [place] whiskey and diet 7-Up. Admission Exam Per Admitting Provider GENERAL : No acute distress EYES: No icterus, gaze conjugate NOSE: No evidence of epistaxis MOUTH: No lesions or candidiasis NECK: Supple LUNGS: CTA B/L, no wheezes, rales or rhonchi HEART: Regular, rate controlled ABDOMEN: Soft, NT, ND, BS Present EXTREMITIES: No LE edema, pedal pulses intact NEURO: A&OX3 Principal Diagnosis Chest pain Discharge Exam Constitutional + well hydrated and + obese; no acute distress Eyes PERRL, conjunctivae normal, anicteric sclerae ENMT external ear and nose normal, oropharynx normal Respiratory normal respiratory effort, lungs clear to auscultation Cardiovascular RRR, no murmur, no edema Chest (Breasts) Additional Comments: No chest wall tenderness Gastrointestinal (Abdomen) normal bowel sounds, soft, nontender, no hepatosplenomegaly Musculoskeletal no cyanosis or clubbing, extremities motor strength 5/5 Neurologic PERRL, EOMI, accommodation nl, no face palsy, no dysarthria Psychiatric A+Ox3, euthymic affect Discharge Data Allergies Allergy/AdvReac Type Severity Reaction Status Date / Time No Known Allergies Allergy Unverified 10/15/20 12:34 Consultations 10/15/20 15:42 ED Decision to Admit Stat 10/15/20 17:57 Consult Cardiology Stat Hospital Course (1) Chest pain: Chest pain resolved. Work-up including EKG, troponin and stress test were negative for ischemia Patient reported that she had been increasing her exercise regimen. Was evaluated by filer finish and recommended to resume treadmill exercising at home, perhaps at a lower pace, 2% incline, 1.5 mph, and with plans to increase as tolerated. Continue home amlodipine-benazepril, aspirin, atorvastatin increased to 40 mg daily Patient to follow-up with PCP in 1 to 2 weeks and cardiology in 2 months (2) Hypertension: Continue amlodipine-benazepril (3) Diabetes mellitus type 2, controlled: Continue Metformin (4) Dyslipidemia: (5) Obesity (BMI 30.0-34.9): Continue exercise as advised with gradual increase in pace Atorvastatin increased to 40 mg daily Total Time Total Time Spent Total Time Spent (In Minutes): 40 Total Time Includes: Examination of the Patient, Discharge Planning, Medication Reconciliation and Communication With Other Providers Discharge Plan Discharge Items Patient Disposition: Home - Self-Care Reason For Visit: CHEST PAIN RULE OUT Discharge Diagnosis: Chest pain Condition on Discharge: Good Activity: Per Instructions section Activity Comment: Resume treadmill exercising at home, perhaps at a lower pace, 2% incline, 1 Non-emergency contact: Primary Care Provider and Slater Apprentice Call non-emergency contact if: you have any medication questions and your symptoms worsen Follow-up/Referrals: Apurva Holt DO [Primary Care Provider] - (Date & Time 10/20/2020 11:10 AM Provider Apurva Holt DO [facility] ) Diet: Heart Healthy Addtl Attending Provider Instructions: Mrs Apple. You came to the hospital complaining of chest pain. You were extensively evaluated with telemetry, blood tests and stress test which do not indicate heart attack. You were also evaluated by Slater Apprentice. Your atorvastatin was increased to 40mg daily. Please follow up with your Primary Doctor and the Slater Apprentice outpatient. It was a pleasure taking care of you Pending Studies at Discharge: No Stand-Alone Forms: My [facility], Smoking Cessation Medications and DC Order Prescriptions: New atorvastatin 40 mg Tablet 40 mg PO QAM 30 Days Qty: 30 RF: 0 Continued metformin 500 mg tablet 500 mg PO BID RF: 0 aspirin 81 mg Tablet,Delayed Release (Dr/Ec) 81 mg PO QAM RF: 0 amlodipine-benazepril 5-10 mg capsule 1 cap PO QAM RF: 0 Discontinued atorvastatin 20 mg tablet 20 mg PO QAM RF: 0 Discharge Orders: Discharge Order (Routine); Ordered 10/16/20 Ordered By: Emily Galvez Admission Data Admit Date/Time: 10/15/20 16:15 Attending Provider: Emily Galvez I. Admit Provider: Emily Galvez I. Primary Care Provider: Apurva Holt Other Providers: Emily Galvez I. ; Deshaun Parker Other Interventions: Discharge Summary Assessment (RN) Last Done: 10/16/20 12:39
[2020-10-17] MEDS ORDERED: ATORVASTATIN 40 MG TAB PO SCH (09:00)
== END 2020-10-16 14:06 | disposition home or self-care (01) ==
LOC: 2N 10:43 → ED 10:43 → 2N 17:21